=== PATIENT | female | born 1995 | race Native Hawaiian/Other Pacific Islander ===

== ENCOUNTER 2016-08-30 09:07 | Inpatient (IN) | payer BC ==
[~2016-08-30] VITALS: Ht 167.6 cm; Wt 168.7 kg
--- NOTE | 2016-08-30 10:00 | NUR ---
IV SITE STARTED BUT UNALBE TO PULL BUT 2ML OF BLOOD FROM SITE. ATTEMPTED TO DRAW LABS AND UNABLE TO OBTAIN. LAB NOTIFIED AND WILL TRY. LAB STATES NOT TO START FLUIDS SO THEY CAN DRAW ABOVE IV SITE IF NEEDED
[2016-08-30 10:32] LABS: PLATELET COUNT 185 K/uL (152-353)
[2016-08-30 10:48] VITALS: BP 149/98; TEMP 101.5; Ht 167.6 cm; Wt 168.7 kg
[2016-08-30 11:11] LABS: PARTIAL THROMBOPLASTIN TIME 27.5 SECONDS (24.5-33.6)
[2016-08-30 11:19] LABS: POTASSIUM 3.7 mmol/L (3.6-5.2); SODIUM 134 mmol/L (136-145)
[2016-08-30 12:00] VITALS: BP 141/88; TEMP 98.6
--- NOTE | 2016-08-30 13:51 | NUR ---
REPORT GIVEN TO ADOLFO MACEDO RN
[2016-08-30 16:08] VITALS: BP 132/76; TEMP 97.9
[2016-08-30 20:00] VITALS: BP 154/94; TEMP 99
[2016-08-31] VITALS: BP 123/59; TEMP 98.6
[2016-08-31 03:18] LABS: POTASSIUM 3.5 mmol/L (3.6-5.2); SODIUM 138 mmol/L (136-145)
[2016-08-31 03:25] LABS: PLATELET COUNT 185 K/uL (152-353)
[2016-08-31 05:23] VITALS: BP 149/81; TEMP 98.8
--- NOTE | 2016-08-31 06:00 | NUR ---
NOTIFIED DR ARGUELLO OF PTS TACHICARDIA AND LOWERERING O2 SATS ORDERS FOR A PE STUDY. 20G IV STARTED TO LEFT AC X 1 STICK FOR TEST. XRAY NOTIFIED OF NEW ORDER.
[2016-08-31 08:08] VITALS: BP 132/88; TEMP 98.9
--- NOTE | 2016-08-31 11:30 | NUR ---
ORDERS FOR VQ SCAN GIVEN TO UR FOR INSURANCE VERIFICATION. UR TO LET US KNOW ONCE APPROVED
[2016-08-31 12:00] VITALS: BP 154/97; TEMP 98.6
--- NOTE | 2016-08-31 14:30 | NUR ---
KETURAH WITH DR. LITTLE OFFICE CONTACT AB VQ SCAN FOR TOMORROW. PT ADDED TO BOOK FOR 1200 BUT THERE IS NO [place] FOR MEDS TO BE HERE BY THEN SINCE THEY WERE ORDERED AFTER 1400. AWARE.
[2016-08-31 16:29] VITALS: BP 148/91; TEMP 98.5
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
[2016-08-31 20:00] VITALS: BP 122/70; TEMP 101.7
[2016-09-01] VITALS: BP 141/91; TEMP 98.5
[2016-09-01 04:00] VITALS: BP 147/68; TEMP 98
[2016-09-01 07:47] LABS: POTASSIUM 4.2 mmol/L (3.6-5.2); SODIUM 138 mmol/L (136-145)
[2016-09-01 07:56] VITALS: BP 144/94; TEMP 98.5
[2016-09-01 10:39] LABS: PLATELET COUNT 202 K/uL (152-353)
[2016-09-01 12:00] VITALS: BP 152/99; TEMP 99.3
--- NOTE | 2016-09-01 13:40 | NUR ---
1150- PT WITH NUC [facility] AT THIS TIME FOR VQ SCAN
--- NOTE | 2016-09-01 15:55 | NUR ---
1540- PT RETURNED FROM SCAN AT THIS TIME. IV ANTIBIOTICS GIVEN
[2016-09-01 16:00] VITALS: BP 140/90; TEMP 98.8
--- NOTE | 2016-09-01 17:38 | NUR ---
PT C/O PAIN AT IV SITE. IV DC'D WITH CANNULA INTACT AND SITE CARE PROVIDED. RESTARTED IV TO R FA WITH 22G ANGIOCATH X 1 ATTEMPT PER KADEEM DAVEY RN. PT TOLERATED WELL.
[2016-09-01 20:00] VITALS: BP 106/61; TEMP 99.4
[2016-09-02] VITALS: BP 128/70; TEMP 99.1
--- NOTE | 2016-09-02 01:29 | NUR ---
09/02/[address] ARGUELLO OF VQ SCAN.RADIOLOGIST CALLED WHICH WAS SIGNED BY DR. SHABAZZ.READ RESULTS TO DR. ARGUELLO NO NEW ORDERS GIVEN AT TIME.CC
[2016-09-02 04:00] VITALS: BP 147/78; TEMP 99
[2016-09-02 08:00] VITALS: BP 136/79; TEMP 97.9
[2016-09-02 10:27] LABS: PLATELET COUNT 208 K/uL (152-353)
[2016-09-02 11:10] LABS: POTASSIUM 4.4 mmol/L (3.6-5.2); SODIUM 136 mmol/L (136-145)
[2016-09-02 12:00] VITALS: BP 147/96; TEMP 98.4
--- NOTE | 2016-09-02 16:36 | NUR ---
D/C INSTRUCTIONS GIVEN TO PT. INFORMED HER TO FOLLOW UP WITH ASIA VAIL NP ON MONDAY. IV D/C'D R FA 22G CATH TIP INTACT.
== END 2016-09-02 17:30 | disposition home or self-care (01) | DRG 195 ==
LOC: MED/SURG 09:07
PROVIDERS: Internal Medicine; Student in an Organized Health Care Education/Training Program; ADMIT Nurse Practitioner
DX: J18.8 Other pneumonia, unspecified organism (principal); R07.89 Other chest pain; E86.0 Dehydration; D64.89 Other specified anemias; R06.02 Shortness of breath
CPT/HCPCS: 36415; 36591; 36600; 80048; 80053; 81000; 81025; 82550; 82805; 83735; 84443; 84481; 84484; 85027; 85379; 85610; 85730; 87040; 87804; 93005; 93306; 94640; 94664; 94760; 96360; 96361; 96367; 96372; A9540; A9567; J1650; J1885; Q9963

== ENCOUNTER 2017-01-04 15:37 | Emergency (ER) | payer BC ==
[~2017-01-04] VITALS: Ht 167.6 cm; Wt 168.7 kg
[2017-01-04 19:16] LABS: PLATELET COUNT 258 K/uL (152-353)
[2017-01-04 19:23] LABS: POTASSIUM 4.1 mmol/L (3.6-5.2); SODIUM 139 mmol/L (136-145)
[2017-01-04 20:41] VITALS: BP 148/96; TEMP 97.2
== END 2017-01-04 20:42 | disposition home or self-care (01) ==
LOC: ED 15:37
DX: R10.9 Unspecified abdominal pain (principal)
CPT/HCPCS: 36415; 80053; 85027; 96372; 99284; J1885; J2405

== ENCOUNTER 2017-01-09 09:04 | Outpatient (CLI) | payer BC ==
[2017-01-09 10:18] LABS: PLATELET COUNT 218 K/uL (152-353)
[2017-01-09 10:27] LABS: SODIUM 139 mmol/L (136-145)
== END 2017-01-09 10:40 | disposition home or self-care (01) ==
LOC: LABW 09:04
PROVIDERS: Nurse Practitioner Family
DX: R10.9 Unspecified abdominal pain (principal)
CPT/HCPCS: 36415; 80053; 82150; 83690; 85027; 86318

== ENCOUNTER 2017-12-06 18:51 | Inpatient (IN) | payer BC ==
[~2017-12-06] VITALS: Ht 170.2 cm; Wt 141.6 kg
[2017-12-06 18:55] VITALS: BP 138/89; TEMP 100.9
[2017-12-06] MEDS ORDERED: LEXAPRO20 MG PO (19:16)
[2017-12-06 19:30] LABS: PLATELET COUNT 279 K/uL (152-353)
[2017-12-06 19:40] LABS: POTASSIUM 3.6 mmol/L (3.6-5.2)
[2017-12-06 19:55] LABS: PARTIAL THROMBOPLASTIN TIME 28.6 SECONDS (24.5-33.6)
[2017-12-06 22:50] VITALS: BP 127/76; TEMP 99; Ht 170.2 cm; Wt 141.6 kg
[2017-12-07] VITALS: BP 109/64; TEMP 99.4
[2017-12-07 03:48] VITALS: BP 105/61; TEMP 102.8
[2017-12-07 06:47] LABS: PLATELET COUNT 253 K/uL (152-353)
[2017-12-07 06:57] LABS: POTASSIUM 3.6 mmol/L (3.6-5.2)
[2017-12-07 08:00] VITALS: BP 103/67; TEMP 101
[2017-12-07 12:00] VITALS: BP 111/63; TEMP 99.2
[2017-12-07 16:00] VITALS: BP 99/50; TEMP 100.3
[2017-12-07 20:00] VITALS: BP 127/84; TEMP 103
[2017-12-08] VITALS: BP 99/60; TEMP 99
[2017-12-08 01:35] LABS: PLATELET COUNT 218 K/uL (152-353)
[2017-12-08 01:56] LABS: POTASSIUM 3.2 mmol/L (3.6-5.2)
[2017-12-08 04:00] VITALS: BP 102/54; TEMP 102
[2017-12-08 08:00] VITALS: BP 110/68; TEMP 98.1
== END 2017-12-08 09:15 | disposition short-term general hospital (02) | DRG 871 ==
LOC: ED 18:51 → MED/SURG 21:07
DX: A41.89 Other specified sepsis (principal); J18.8 Other pneumonia, unspecified organism; Z68.42 Body mass index [BMI] 45.0-49.9, adult; R00.0 Tachycardia, unspecified; R94.31 Abnormal electrocardiogram [ECG] [EKG]; F32.89 Other specified depressive episodes; E66.01 Morbid (severe) obesity due to excess calories; Z71.3 Dietary counseling and surveillance
CPT/HCPCS: 36415; 80053; 81000; 82550; 82553; 83605; 83615; 83880; 84484; 85007; 85027; 85379; 85610; 85730; 87040; 87081; 87086; 87088; 87804; 87880; 93005; 94640; 94664; 94760; 96361; 96374; 99284; J0456; J0696; J1885; J2405; J3490; Q9963

== ENCOUNTER 2017-12-08 09:24 | Outpatient (CLI) | payer BC ==
[~2017-12-08 09:24] MED LIST: LEXAPRO20 MG PO
== END 2017-12-08 10:35 | disposition short-term general hospital (02) ==
LOC: AMB 09:24
DX: A41.89 Other specified sepsis (principal); J18.8 Other pneumonia, unspecified organism; Z68.42 Body mass index [BMI] 45.0-49.9, adult; R00.0 Tachycardia, unspecified; R94.31 Abnormal electrocardiogram [ECG] [EKG]; F32.89 Other specified depressive episodes; E66.01 Morbid (severe) obesity due to excess calories; Z71.3 Dietary counseling and surveillance
CPT/HCPCS: A0425; A0427